=== PATIENT | female | born 1995 | race Caucasian/White ===

== ENCOUNTER 2018-06-05 09:29 | Emergency (ER) | payer OTHER, BC ==
[~2018-06-05] VITALS: Ht 162.6 cm; Wt 63.6 kg
[2018-06-05] MEDS ORDERED: BIRTH CONTROL PO (09:41)
[2018-06-05] MEDS ORDERED: TORADOL PO (11:16)
[2018-06-05] MEDS ORDERED: FLEXERIL PO (11:16)
[2018-06-05 11:31] VITALS: BP 125/76
== END 2018-06-05 11:26 | disposition home or self-care (01) | DRG 552 ==
LOC: ED 09:29
DX: S16.1XXA Strain of muscle, fascia and tendon at neck level, initial encounter (principal); S39.012A Strain of muscle, fascia and tendon of lower back, initial encounter; V43.52XA Car driver injured in collision with other type car in traffic accident, initial encounter; Y92.411 Interstate highway as the place of occurrence of the external cause